=== PATIENT | male | born 1940 | race Caucasian/White ===

== ENCOUNTER 2019-11-16 01:39 | Inpatient (IN) | payer OTHER ==
[~2019-11-16] VITALS: Ht 156.1 cm; Wt 70.8 kg
[2019-11-16 02:45] VITALS: BP 171/85
[2019-11-16] MEDS ORDERED: ZOLOFT 50 MG TA50 MG PO (03:25)
[2019-11-16] MEDS ORDERED: ATORVASTATIN CA10 MG PO (03:26)
[2019-11-16] MEDS ORDERED: NAMENDA 5 MG TAB5 M1 PO (03:26)
--- NOTE | 2019-11-16 04:02 | NUR ---
Patient admitted from [facility] by mary. Patient currently resides at home with his . Patient has the diagnosis of Dementia and was started on a regimen of Memantine 5mg po daily 1 week ago. Patient's reported that on day 3-4 of taking medication, patient started to become more agitated. This medication was placed on hold by Dr. Quick at time of admission. Per medical record, patient was at home with his when the patient became confused and threatened to physically throw out of the home. The got into the car to go to her daughter's house when the patient started to pound on the car, preventing her from leaving. Patient's was able to get to her daughters home, which during that time, patient had called his daughter stating that "some woman stole the car". Patient was yelling on the phone and 911 was called to assist. Patient was then taken to the ED for eval and tx. Affidavits from daughter and are in patient's chart. Patient was willing to sign admission paperwork also. Patient calm, pleasant and cooperative. Patient alert and oriented to person and time. Some disorientation noted on place and situation. Patient denies SI/HI/AH/VH. Denies anxiety and depression. 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 States that he smoked marijuana once when he was in the . Denies any other drug or cigarette use. Patient denies weight loss, states that his average weight is 152#. On arrival, weight 156.2#. Patient states that he feels safe at home. Does admit that he has been having more difficulty with his memory the last couple months. States that he wants to get help and is fearful. Patient does not use any assistive devices and is able to complete all ADLs independently. Continent of bowel and bladder. Last BM 11/15/19. Medical history only includes hyperlipidemia. Currently full code, regular diet. Patient has bilateral hearing aides, full upper and lower dentures. Patient respectful and appreciative. Patient was able to settle into bed and fall asleep after admission process without difficulty.
[2019-11-16 07:00] VITALS: BP 122/80
--- NOTE | 2019-11-16 09:00 | NUR ---
Assumed care 0700. Pleasant, med compliant. Initiated talking with on phone this AM. Is very confused-thinks he is going home today. He is oriented to self and year.
--- NOTE | 2019-11-16 16:38 | NUR ---
ROSALBA introduced herself to pt. ROSALBA contacted pt's and obtained hx. She said she is his DPOA. ROSALBA asked her to provide that document. She said she will bring it after speaking with her ; he was calling in during phone call with ROSALBA. ROSALBA updated pt's nursing staff. ROSALBA team will continue to follow pt during his stay on this unit.
[2019-11-16 19:36] VITALS: BP 147/80
--- NOTE | 2019-11-16 22:06 | H ---
[facility] [place] [address] HISTORY AND PHYSICAL Name: MERCED BUSTAMANTE Room #: 519A-A ADM IN M.R.#: [id number] Admission: 11/16/19 Attend Phys: Luis Manuel Oneal DO Discharge: Date of : 44 Report #: [id number] THIS REPORT FOR: cc: Georgina Avendaño Reuel M. DO Kerstein, Andrew H. DO ~ CC: Luis Manuel Avendaño DATE OF SERVICE: 11/16/2019 INPATIENT PSYCHIATRIC EVALUATION ATTENDING PHYSICIAN: Luis Manuel Oneal DO. OIL RECOVERY UNIT OPERATOR: Nestor Rosales MD and his Geriatric nurse practitioner Sumi East. REASON FOR PSYCHIATRIC ADMISSION: Threatening behavior towards his , agitation in the setting of progressive neurodegenerative disease, historically. SOURCES OF INFORMATION: Interview with the patient. Phone conference with Varsha, emergency Room notes from [facility] in spring HISTORY OF PRESENT ILLNESS: This is a 79-year-old male who was transferred from [facility] Emergency Room to [facility] for Geriatric Psychiatry hospitalization following several incidents last night involving his . The reported that the patient became confused and threatened to physically throw her out of the house. The then got into the car to go to the daughter's house. The states she was trying to leave. The patient began pounding on the car and tried to prevent her from leaving. The patient's then went to the daughter's house. The patient then called the daughter and stated that "some woman stole the car." The patient's states that the patient was yelling on the phone with her daughter. The daughter called 911. Police arrived to assess the situation. The patient states that he does not remember being angry or the events that occurred. He states that he does remember police arriving. The patient's reports that he does have dementia and recently started taking 5 mg of memantine tablets. It was the seventh day that the patient was taking this medication. It is prescribed by , his neurologist. The states that the patient has never been aggressive like this before. In the Emergency Room the patient does not remember his , her name or their daughter's name. Denies fever and cough. No other complaints at this time. PAST MEDICAL HISTORY: Includes hyperlipidemia. [facility] [address] [place] [address] HISTORY AND PHYSICAL Name: MERCED BUSTAMANTE Room #: 519A-A [facility]#: [id number] Admission: 11/16/19 Attend Phys: Luis Manuel Oneal DO Discharge: Date of : 44 Report #: [id number] PSYCHIATRIC HISTORY: Dementia. HOME MEDICATIONS: Sertraline 50 mg p.o. daily, atorvastatin 10 mg p.o. at bedtime, memantine 5 mg p.o. daily. FAMILY HISTORY: Deferred at this time. SOCIAL HISTORY: Tobacco, less than 100 cigarettes in life. REVIEW OF SYSTEMS: From the ER, CONSTITUTIONAL: Denies fever or chills. EYES: Denies eye pain or visual change. HENT: Denies congestion, headache. RESPIRATORY: Denies cough, shortness of breath. CARDIOVASCULAR: Denies chest pain, palpitations. GASTROINTESTINAL: Denies abdominal pain, nausea, vomiting or diarrhea. GENITOURINARY: Denies burning, urgency, frequency or hematuria. MUSCULOSKELETAL: Denies back pain, muscle pain. SKIN: Denies rash, bruising. NEUROLOGIC: Denies numbness, tingling or weakness. PSYCHIATRIC: As above. Otherwise, 10-point review of systems negative. PHYSICAL EXAMINATION: Grossly normal in the Emergency Room, LABORATORY DATA: Laboratories from the ER at [place]. White count 10.4, H and H 12.6 and 35.1, platelet count 263. Chemistries: Sodium 135, potassium 4.0, chloride 103, bicarbonate 26, anion gap 6, BUN 25, creatinine 1.5, estimated GFR 45, glucose 97, calcium 8.9, total bilirubin 0.5, AST 24, ALT 25, alkaline phosphatase 70, total protein 7.1, albumin 4.1. Urinalysis showed 3+ blood, some RBCs, which were noted to be 3-10, which is qualitatively few, otherwise urinalysis negative. So he does not have UTI. Urine drug screen was negative. Salicylate less than 2.8, acetaminophen less than 2, alcohol less than 10. Imaging done in the ER was none. There is a head MRI from 2013 which showed mild age-related changes. Additional history I neglected to mention but obtained from the and the is as follows: The patient was born in [facility]. The patient obtained 50 credits of college. He was unclear on his occupational history. 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 He had an alcohol problem prior to 1988, but has been sober since then, they have 2 children. The patient does have a sister with major neurocognitive disorder; however, she as well had an alcohol problem. [facility] [address] [place] [address] HISTORY AND PHYSICAL Name: MERCED BUSTAMANTE Room #: 519A-A [facility]#: [id number] Admission: 11/16/19 Attend Phys: Luis Manuel Oneal DO Discharge: Date of : 44 Report #: [id number] VITAL SIGNS: Today on the [facility] are as follows: Temperature 36.3, pulse 60, respirations 16, BP 122/80, O2 sat 99%. MUSCULOSKELETAL: Normal gait and station, dressed in hospital gown, wearing glasses, some muscular atrophy present. MENTAL STATUS EXAMINATION: This is a well-developed, unkempt male, appearing stated age. Attention impaired. Concentration impaired. Speech is normal rate. Thought process linear and limited. Thought content, perseverating on how to get out of the building. Interestingly, while I was talking with him the patient asked how to get to his room. I showed him his room and did not believe it his room, even though it was marked with his name as his room. Denied SI or HI. Some helplessness. Denied hopelessness. Denied auditory, visual, or tactile hallucinations. Again, denied suicidal or homicidal ideations. Memory not formally tested, but obviously grossly impaired. Insight impaired, judgment impaired. Fund of knowledge well below average. FORMULATION: A 79-year-old male sent by police to the Emergency Room and transferred from [facility] here after altercation with his . The patient appears to have progression of his neurodegenerative disorder. PLAN: At this time, evaluate, stabilize, obtain collateral. With regards to his impulse control, I reviewed risks, benefits, alternatives with the . I will start him on Trileptal 150 mg p.o. b.i.d. Other medications, famotidine 20 mg p.o. daily, docusate 100 mg p.o. daily for bowel motility, atorvastatin 10 mg p.o. at bedtime, sertraline was given 50 mg p.o. daily, actually that was a home med. Memantine was discontinued and otherwise house PRNs. at least 60 minutes spent on review of records and coordination of care ESTIMATED LENGTH OF STAY: 10-14 days, wishes patient to return home. STRENGTHS: Insured, supportive family. WEAKNESSES: Medical comorbidities, advancing age and neurodegenerative disorder. DIAGNOSES: Major neurocognitive disorder due to Alzheimer's disease with [facility] [address] [place] [address] HISTORY AND PHYSICAL Name: MERCED BUSTAMANTE Room #: 519A-A [facility]#: [id number] Admission: 11/16/19 Attend Phys: Luis Manuel Oneal DO Discharge: Date of : 44 Report #: [id number] behavioral disturbance. Medical comorbidities diagnosis includes hyperlipidemia. <ELECTRONICALLY SIGNED> By: Luis Manuel Oneal DO 11/16/19 [id number] Luis Manuel Oneal DO /nt
--- NOTE | 2019-11-17 05:42 | NUR ---
Assumed care of pt @ 1900. Pt calm et cooperative with pleasant but confused demeanor this shift. Took medications whole without difficulty. Pt stated that he thought that this nurse was looking for his mother. Pt seemed to believe that his mother was here on the unit. Socialized in dayroom until HS. VSWNL. Health assessment with no abnormalities noted at present time. Denies SI/HI. Currently resting in bed with eyes closed. Will continue to monitor per protocol.
[2019-11-17 09:03] VITALS: BP 154/93
--- NOTE | 2019-11-17 09:04 | NUR ---
0700 ASSUMED CARE OF PATIENT 0800 PATIENT SITTING AT TABLE IN DAYROOM. NO C/O PAIN, STATES GOAL FOR TODAY IS TO GO HOME. PATIENT CONCERN- WANTS TO SEE . MISSILE INSPECTOR PREFLIGHT EXPLAINED ABOUT VISITATIONS HAVE BEEN PLACED ON A HOLD DURING THIS TIME BUT ABLE TO CALL HER IF HE WOULD LIKE. DENIES SI/HI/AH/VH. WILL CONTINUE TO OBSERVE.
--- NOTE | 2019-11-17 17:56 | NUR ---
PATIENT CONFUSED AND REQUESTING TO GET OUT OF HERE. PATIENT ASKING FOR DOOR TO BE UNLOCKED. DYEING MACHINE TENDER EXPLAINED TO PATIENT WHERE HE WAS, PATIENT PUTS HANDS ON HEAD AND APPEARED TO BE CONFUSED. DYEING MACHINE TENDER REDIRECTED PATIENT TO DAY ROOM.
[2019-11-17 19:17] VITALS: BP 143/76
--- NOTE | 2019-11-18 04:44 | NUR ---
Assumed care of pt @ 1900. Pt calm et cooperative this shift. Took medications whole without difficulty. Ambulates the halls ad christopher with steady gait. VSWNL. Health assessment with no abnormalities noted at present time. Denies SI/HI. Currently resting in bed with eyes closed. Will continue to monitor per protocol.
[2019-11-18 10:37] VITALS: BP 124/72
[2019-11-18 13:14] VITALS: BP 124/72
--- NOTE | 2019-11-18 13:22 | NUR ---
ASSUMED CARE AT 0700 TODAY. HE SITS ISOLATIVE ON THE UNIT. HE IS DRESSED IN A HOSPITAL GOWN. HE DENIES SI/HI OR AVH. BUT HE STATES HE IS LOOKING FOR HIS SHE SHOULD BE HERE AND HE WANT TO TALK WITH HER. HE TOOK HIS MEDICATIONS WITHOUT DIFFICULTIES. HE HAS REMAINED PLEASANT AND COOPERATIVE. NO AGRESSION NOTED AT THIS POINT.
[2019-11-18 19:37] VITALS: BP 162/86
--- NOTE | 2019-11-19 04:55 | NUR ---
ASSESSMENT: PT WANDERED AROUND UNIT, OCCASSIONALLY ENTERING WRONG ROOM. INSISTED THAT WE HAD FOAM EAR PLUGS FOR HIM TO USE AFTER REMOVING HIS HEARING AIDS. DID NOT WANT TO GO TO BED, INSTEAD CONTINUE TO ENTER AND EXIT ROOM. DID FINALLY LAY DOWN FOR THE NIGHT WITH OUT INCIDENT. TAKES ALL MEDS WHOLE. DISPLAYED MILD AGITATION WHEN LOOKING FOR EAR PLUGS. SLOW PROGRESS TOWARDS DC GOALS, WILL CONTINUE TO MONITOR.
[2019-11-19 09:14] VITALS: BP 121/80
--- NOTE | 2019-11-19 15:00 | NUR ---
Assumed patient care around 7am. paitent alert and cooperative; walking in the hallway with steady gait; taked meds whole with water; denied pain, no n/v; health assessement without abnormalities other than previously noted; patient sitting in the chair, with eyes closed, chest up and down. will keep montioring.
--- NOTE | 2019-11-19 18:11 | NUR ---
SW participated in phone conference with pt's Tomasa & Dr. Oneal to discuss pt's prognosis and discharge recommendations; memory care. is in agreement with this plan. ROSALBA emailed a list of placements to her at ([email or web address])
[2019-11-19 19:42] VITALS: BP 155/71
[2019-11-19 22:00] VITALS: BP 155/71
--- NOTE | 2019-11-20 01:09 | NUR ---
Assumed care of patient this pm shift. Patient in good spirits. Patient confused about which room he is in. Patient denies pain. Patient denies hi/si. Patients affect variable. Patient takes medications whole. Patient ambulates without assistance. Patients assessment shows clear breath sounds, active bowel sounds, and s1 s2 heard with auscultation. We will continue to monitor per protocol.
[2019-11-20 07:48] VITALS: BP 124/68
--- NOTE | 2019-11-20 09:14 | NUR ---
PATIENT IN DINING ROOM FOR BREAKFAST. TOOK AM MEDS. HAS PEE HEARING AIDES. AMBULATES W/O ASSISTIVE DEVICES. NO PAIN OR INCREASED ANXIETY.
--- NOTE | 2019-11-20 10:51 | NUR ---
ROSALBA spoke with Tomasa Velazquez about her options for NH referrals and provided education on AL vs AL with memory care. Tomasa chose a few options but said [facility] was her #1 choice. ROSALBA told her she will also look at other options in her area and keep her updated via email. Most of Tomasa's options did not have memory care for men. In addition to [facility], ROSALBA sent referrals to [facility] in [facility], and [facility]. SW team will continue to follow pt during his stay on this unit.
--- NOTE | 2019-11-20 15:37 | NUR ---
ROSALBA received a call from both [facility] and [facility] asking for a return call. said they do not have memory care beds, but would like to sent pt's referral to [facility]. Melania with [facility] said their DON has clinically accepted pt. ROSALBA and Melania agreed to wait until after tx team in the morning when their is a discharge plan to proceed with Melania contacting pt's . ROSALBA team will continue to follow pt during his stay on this unit.
[2019-11-20 19:32] VITALS: BP 152/75
--- NOTE | 2019-11-21 05:11 | NUR ---
Assumed care of pt @ 1900. Pt calm et cooperative with pleasant demeanor. Took medications whole without difficulty. Ambulates the halls ad christopher with steady gait. Socialized in dayroom with peers until HS. VSWNL. Health assessment with no abnormalities noted at present time. Denies SI/HI. Pt appeared to be clearer of mind today than on previous encounters. Currently resting in bed with eyes closed. Will continue to monitor per protocol.
[2019-11-21 09:35] VITALS: BP 126/76
--- NOTE | 2019-11-21 11:44 | NUR ---
ROSALBA spoke with Tomasa Velazquez who said she spoke with [facility] and said their pricing is very high. She said she and Melania discussed possibly bringing pt in on respite until she has her meeting with an elder defense attorney on 11/28. ROSALBA offered to send more referrals to facilities so that she can have options. She said ok. ROSALBA spoke to Aleaxndra with [facility] and was informed that pt is denied due to not having any memory care beds. SW team will continue to follow pt during her stay on this unit.
[2019-11-21 15:31] LABS: CALCIUM 9.3 mg/dL (8.5-10.1); CREATININE 1.3 mg/dL (0.7-1.3); POTASSIUM 4.3 mmol/L (3.5-5.1)
--- NOTE | 2019-11-21 17:49 | NUR ---
0700 ASSUMED CARE OF PATIENT, PATIENT IN DAYROOM AT THAT TIME. 0800 PATIENT EATS BREAKFAST WELL, MEICATION TAKEN WHOLE. PATIENT CONFUSED, CALM AND COOPERATIVE. LUNG SOUNDS CLEAR, BS ACTIVE. DENIED NEEDS AT THAT TIME. PATIENT HAS BEEN LOOKING FOR KEYS AND AFTER TRYING TO EXPLAIN TO PATIENT WHERE HE IS PATIENT CONTINUES TO LOOK FOR THEM. PATIENT STATED TO OPEN HEARTH MELTER TODAY ABOUT WANTING TO SELL HIS BLOOD FOR [facility] AND FOLLOWING POURED WALL FOREMAN. PATIENT IS CONFUSED AND A&O X2. LUNG SOUNDS CLEAR, BS ACTIVE. PATIENT WANDERS BRIDGES WITH TWO OTHER PATIENTS ENTERING OTHER PATIENTS ROOMS. WILL CONTINUE TO OBSERVE.
[2019-11-21 19:40] VITALS: BP 148/85
[2019-11-21 21:00] VITALS: BP 148/85
--- NOTE | 2019-11-22 04:21 | NUR ---
Assumeed pt care at 1900. On assessment pt A/OX2,confused and wandering on the hallway wanting to go home. Pt denied SI/HI,calm and coperative. Took HS meds w/o difficulties. VSS,LSCTA. Denies pain on assessment. Resting quietly in bed at this time w/o any distress noted,will continue to monitor pt.
[2019-11-22 07:49] VITALS: BP 136/62
[2019-11-22 20:40] VITALS: BP 149/79
--- NOTE | 2019-11-23 05:29 | NUR ---
Assumed care of pt @ 1900. [facility]. Took medications whole without difficulty. Ambulates the halls ad christopher with steady gait. Socialized in dayroom with peers unti;l HS. VSWNL. Health assessment with no abnormalities noted at present time. Denies SI/HI. Currently resting in bed with eyes closed. Will continue to monitor per protocol.
[2019-11-23 07:15] VITALS: BP 129/82
--- NOTE | 2019-11-23 08:13 | NUR ---
RT Progress Note- Axel is seen in the milieu throughout most of the day, engaging with peers and staff. He is pleasant in conversation though disoriented to situation. He is accepting of staff orienting him but quickly forgets what was told. Patient has participated in music, exercise, and game activities and groups.
[2019-11-23 13:16] VITALS: BP 129/82
--- NOTE | 2019-11-23 13:34 | NUR ---
ASSUMED CARE AT 0700 TODAY. HE CONTINUES TO BE CONFUSED. HE IS A&O X 2. HE DENIES SI/HI. TOOK HIS MEDICATIONS WITHOUT DIFFICULTY. HE IS EATING WELL. HE PRESENTS WITH BLAND AFFECT AND SOMBER MOOD.
--- NOTE | 2019-11-23 14:19 | NUR ---
ROSALBA received a call from pt's Tomasa stating that she cannot afford an AL placement and wanted to know if she took pt home would he be discharged AMA. ROSALBA explained no; while the doc and SW recommend AL placement that is not thing that will affect pt adversly if she decides something else. ROSALBA did, however, recommend they have a person in the home with pt 24 hours and it be someone other than just the since pt is aggressive towards her. Pt's daughter Jerri lives a couple miles away. ROSALBA received a call from Tomasa about a form the [facility] needs [facility] out from the psychiatrist. When ROSALBA asked what time Tomasa wants to pick pt up, she informed SW that he is to go to [facility] for a month on respite. ROSALBA explained she did not get a call from anyone stating this. Tomasa gave ROSALBA Velázquez, the liason she has been speaking with, info of [phone]. ROSALBA contacted Melania who explained that Tomasa never confirmed with her but she would be happy to take pt. She said she will call ROSALBA back once she has arranged transportation. Her fax # to fax d/c docs is [phone]
[2019-11-23 19:20] VITALS: BP 137/92
--- NOTE | 2019-11-23 20:55 | NUR ---
Assumed care of patient at change of shift. He was walking in the hallways with a piece of paper in his hand. I asked him to come to his room to complete his assessment. He sat on the bed and asked me to write the number of his room on it. I did so but at the end of the assessment he was unable to repeat his room number to me. His affect is calm and he his cooperative with cares. He denies SI/HI/AH/VH. He is oriented to name only. He took po meds with water. No coughing or choking noted after swallowing. Physical assessment WNL per nursing assessment.
[2019-11-24 04:09] VITALS: BP 137/92
[2019-11-24 07:37] VITALS: BP 141/80
[2019-11-24 09:40] VITALS: BP 141/80
--- NOTE | 2019-11-24 10:04 | NUR ---
ASSUMED CARE AT 0700 THIS MORNING. PT. STABLE. HE IS ALERT AND ORIENTED X 2. NO NEW PROBLEMS NOTED OR VOICED. HE IS PLEASANT AND COOPERATIVE. HE TOOK HIS MEDICATIONS WITHOUT PROBLEMS NOTED.
--- NOTE | 2019-11-24 13:05 | NUR ---
Nutrition: Pt admitted with dementia, behavioral disturbances. PMHx: HLD, dementia. Assessed for LOS. Wt: 156#. Good appetite/intake. Meds noted. Labs noted. Appears at low nutrition risk at this time. RD to follow per protocol.
[2019-11-24 19:29] VITALS: BP 135/75
--- NOTE | 2019-11-24 21:39 | NUR ---
Assumed care of patient at change of shift. Pt. was sitting in day room watching TV with peers. He watches people and TV intently but does not participate in conversation very much. He does answer questions and was cooperative with assessment which was done at approximately 2030 in patient's room. He is alert and oriented x 1 always, and x 2 some times. He is uable to state where he is more than he can state it correctly. His affect is pleasant and perflexed and he is cooperative with cares. His physical assessment is abnormal for lungs diminished and trace bipedal edema noted. He ambulates ad christopher with slow and steady gait.
--- NOTE | 2019-11-24 22:29 | NUR ---
Pt. denies pain or SOA and no signs or symptoms of pain or distress is noted.
[2019-11-24 23:43] VITALS: BP 135/75
--- NOTE | 2019-11-25 05:28 | NUR ---
Pt. up x 3 times and ambulated to bathroom to void. His bed alarm sounds as he is unable to remember to call out for assistance. He used walker with his gait being unsteady at times. He was continent of urine x 3 and consistent flow was heard. Pt. missed toilet at times and sprayed toilet seat, toilet tank, and woods surrounding toilet.
--- NOTE | 2019-11-25 05:32 | NUR ---
Pt. was up x 3 to void during night. He was continent of urine and good flow heard. Pt. would ambulate out to hallway and start to wander. When asked if he had to urinate he would state, "yes".
[2019-11-25 07:37] VITALS: BP 111/81
[2019-11-25 08:50] LABS: ABSOLUTE NEUTROPHILS 4.5 thou/uL (1.4-8.2); BASOPHILS 2.2 % (0.0-2.0); EOSINOPHILS 2.2 % (0.0-3.0); HEMATOCRIT 40.7 % (42.0-52.0); HEMOGLOBIN 14.2 gm/dL (14.0-18.0); LYMPHOCYTES 16.2 % (24.0-44.0); MCH 34.4 pg (26.0-34.0); MCHC 34.8 g/dL (28.0-37.0); MCV 98.7 fL (80.0-100.0); MONOCYTES 8.4 % (1.0-8.0); PLATELET COUNT 288 thou/uL (150-400); RBC 4.12 mil/uL (4.50-6.00); RDW 14.2 % (10.5-14.5); WBC 6.3 thou/uL (4.0-11.0)
[2019-11-25 09:05] LABS: ALBUMIN 4.7 g/dL (3.4-5.0); CALCIUM 9.6 mg/dL (8.5-10.1); CREATININE 1.6 mg/dL (0.7-1.3); MAGNESIUM 2.5 mg/dL (1.8-2.4); PHOSPHORUS 3.1 mg/dL (2.5-4.9); POTASSIUM 4.3 mmol/L (3.5-5.1); TOTAL BILIRUBIN 0.8 mg/dL (<0.1-1.0); TOTAL PROTEIN 7.8 g/dL (6.4-8.2)
[2019-11-25 09:13] LABS: PROTIME 10.4 Seconds (9.3-11.4)
[2019-11-25 09:29] LABS: TSH 6.794 uIU/mL (0.358-3.740)
--- NOTE | 2019-11-25 10:44 | NUR ---
0700 ASSUMED CARE OF PATIENT, PATIENT IN DAYROOM AT THAT TIME. 0720 PATIENT UP AMULATING AND TO DAYROOM FOR BREAKFAST. PATIENT IS CALM AND COOPERATIVE, DENIES PAIN, DENIES SI/HI. 0800 PATIENT IN DAYROOM SITTING WITH OTHERS EATING BREAKFAST. PATIENT TAKES MEDICATION WHOLE WITHOUT DIFFICULTY. PATIENT IS PLEASANTLY CONFUSED. PATIENT COMMUNICATES WELL WITH OTHERS. WILL CONTINUE TO OBSERVE
--- NOTE | 2019-11-25 17:17 | NUR ---
LOOKING FOR PATIENT FOR DINNER, PATIENT FOUND IN ANOTHER PATIENT'S BEDS. REDIRECTED PTIENT TO DAYROOM FOR DINNER. PATIENT STATES "IM SORRY". PATIENT SITS IN DAYROOM TO EAT. WILL CONTINUE TO MONITOR.
[2019-11-25 20:00] VITALS: BP 160/95
[2019-11-25 21:35] VITALS: BP 154/82
--- NOTE | 2019-11-26 01:45 | NUR ---
PT IS A/0 X 1-2. 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 I ASKED HIM HOW LONG HE WAS A PRISONER OF WAR AND HE SAID HE WAS JUST 5 YEARS OLD SO HE DOESN'T REMEMBER MUCH. HE WAS UP IN DINING ROOM AND WALKING THE HALLS UNTIL BED TIME. HE IS PLEASANTLY CONFUSED. HE WAS COOPERATIVE AND TOOK HIS MEDS WHOLE WITH WATER. HE DENIES PAIN. HIS PHYSICAL ASSESSMENT WAS WNL. PT IS FORGETFUL. HE AWOKE AROUND 0130 AND WAS WALKING THE HALLS. I ASKED IF HE NEEDED ANYTHING AND HE SAID HE WAS TRYING TO FIND THE RESTROOM. I WALKED WITH HIM TO HIS ROOM AND SHOWED HIM HIS RESTROOM AND HIS BED. HE WENT TO HIS BED TO GET IN IT. I REMINDED HIM THAT HE HAD SAID HE NEEDED TO USE THE RESTROOM AND HE SAID HE ALREADY HAD USED IT. PT BACK TO BED. ROUTINE ROUNDS TO ASSESS STATUS AND SAFETY.
[2019-11-26 07:28] VITALS: BP 138/79
--- NOTE | 2019-11-26 11:04 | NUR ---
0700 ASSUMED CARE OF PATIENT. 0800 PATIENT SITTING AT TABLE IN DAYROOM FOR BREAKFAST. PATIENT DENIES PAIN, DENIES SI/HI. PATIENT IS CALM & COOPERATIVE, PLEASANTLY CONFUSED ASKING TO LEAVE THE FLOOR. MEDICATIONS TAKEN WHOLE WITHOUT DIFFICULTY. UA COLLECTED AT 1040, BLADDER SCAN DONE AT 11AM WITH VOLUME OF 27 MLS OF URINE. WILL ENCOURAGE FLUID INTAKE. WILL CONTINUE TO OBSERVE.
[2019-11-26 11:37] LABS: URINE BILIRUBIN NEGATIVE (Negative); URINE BLOOD 3+ (Negative); URINE CLARITY CLEAR; URINE COLOR YELLOW; URINE GLUCOSE-RANDOM* NEGATIVE (Negative); URINE KETONES NEGATIVE (Negative); URINE LEUKOCYTES-REFLEX NEGATIVE (Negative); URINE NITRITE-REFLEX NEGATIVE (Negative); URINE PROTEIN (DIPSTICK) NEGATIVE (Negative)
[2019-11-26 11:53] LABS: BACTERIA-REFLEX None Seen /HPF (None Seen); CASTS None Seen /LPF (None Seen); CRYSTALS None Seen /LPF (None Seen); SQUAMOUS 0-3 Few /LPF (0-3); URINE RBC 3-10 Few /HPF (0-2); URINE WBC-REFLEX 0-5 Rare /HPF (0-5)
--- NOTE | 2019-11-26 17:48 | NUR ---
PATIENT VOIDED IN TOILET. PAINTER HELPER SIGN USES BLADDER SCAN AND OBTAINS A PVR OF 55 ML. WILL CONTINUE TO OBSERVE. PAINTER HELPER SIGN CONTINUES TO ENCOURAGE FLUIDS.
[2019-11-26 19:45] VITALS: BP 169/92
[2019-11-26 21:00] VITALS: BP 169/92
--- NOTE | 2019-11-26 21:38 | NUR ---
Assumed care of patient this pm shift. Patient confused, asking to be let out of this unit to see his who has been waiting in the waiting room for 6 hours. Patient is very forgetful this evening and needed much redirection. Patient takes medications whole. Patient ambulates without assistance. Patient is alert and oriented to self. Patient is continent of bowel and bladder. Patients assessment shows clear breath sounds, active bowel sounds, and s1 s2 heard with auscultation. We will continue to monitor per hospital protocol.
--- NOTE | 2019-11-27 07:39 | NUR ---
0700 ASSUMED CARE OF PATIENT, PATIENT SITTING IN DAYROOM DRINKING COFFEE. DENIES NEEDS AT THAT TIME.
[2019-11-27] MEDS ORDERED: LIPITOR10 MG PO (09:17)
[2019-11-27] MEDS ORDERED: OXCARBAZEPINE300 MG PO (09:17)
[2019-11-27] MEDS ORDERED: COLACE 100 MG100 MG PO (09:18)
[2019-11-27] MEDS ORDERED: ZOLOFT25 MG PO (09:18)
[2019-11-27] MEDS ORDERED: PEPCID20 MG PO (09:19)
--- NOTE | 2019-11-27 11:59 | NUR ---
0930 PATIENT PLEASANTLY CONFUSED AND FORGETFUL. PATIENT IS EASILY REDIRECTABLE. MEDICATION TAKEN WITHOUT DIFFICULTY. LUNG SOUNDS CLEAR, BS ACTIVE. NO C/O PAIN. DENIES NEEDS. PATIENT [facility]. WILL CONTINUE TO OBSERVE.
--- NOTE | 2019-11-27 13:35 | NUR ---
PATIENT DC'D AT 1315 VIA WC TO [facility] ACCOMPANIED BY STAFF. BELONGING SENT WITH PATIENT. REQUEST THAT WE DO NOT SEND KEYS AND POCKET KNIFE WITH PATIENT. ITEMS HAVE BEEN LEFT IN SECURITY FOR TO SLIP FEEDER. DC INSTRUCTIONS GIVEN TO VIA PHONE AND VOICED UNDERSTANDING. REPORT CALLED TO [facility] AT 1340. SPA EXPERIENCE COORDINATOR SPOKE WITH MIKE.
--- NOTE | 2019-11-27 15:52 | NUR ---
SW D/C note SW faxed discharge documents, COVID screen, temp log, and letter from doctor stating pt has not been exposed to COVID to [facility]. No other needs for SW team to address at this time.
== END 2019-11-27 13:15 | DRG 57 ==
LOC: SBH
PROVIDERS: Internal Medicine; ADMIT Psychiatry & Neurology Psychiatry
DX: G30.9 Alzheimer's disease, unspecified (principal); F02.81 Dementia in other diseases classified elsewhere, unspecified severity, with behavioral disturbance; N18.3 Chronic kidney disease, stage 3 (moderate); E78.5 Hyperlipidemia, unspecified; F32.9 Major depressive disorder, single episode, unspecified; F29 Unspecified psychosis not due to a substance or known physiological condition; Z79.899 Other long term (current) drug therapy; Z87.891 Personal history of nicotine dependence
CPT/HCPCS: 10880